=== PATIENT | male | born 1965 | race African-American/Black ===

== ENCOUNTER 2021-10-03 14:12 | Emergency (ER) | payer SELFPAY ==
[~2021-10-03] VITALS: Ht 177.8 cm; Wt 71.8 kg
--- NOTE | 2021-10-03 14:46 | PHYS DOC ---
Past Medical History Past Medical History: Alcoholism (LEXX COCHRAN STORE SALES CONSULTANT) Past Surgical History: No Surgical History (LEXX COCHRAN STORE SALES CONSULTANT) General Adult EDM: Chief Complaint: ALCOHOL INTOXICATION HPI: HPI: Patient is a 55 year old male with history of alcoholism presenting to the ED today to be evaluated after being found laying on the street intoxicated. Patient states he drank "a lot" of alcohol today. He states his birthday is coming up in a couple days and he has been drinking. (POPEYELaurentLEXX Ivy SMITH) Review of Systems: Review of Systems: Constitutional: Denies fever or chills. [] Eyes: Denies change in visual acuity. [] HENT: Denies nasal congestion or sore throat. [] Respiratory: Denies cough or shortness of breath. [] Cardiovascular: Denies chest pain or edema. [] GI: Denies abdominal pain, nausea, vomiting, bloody stools or diarrhea. [] : Denies dysuria. [] Musculoskeletal: Denies back pain or joint pain. [] Integument: Denies rash. [] Neurologic: Denies headache, focal weakness or sensory changes. [] Endocrine: Denies polyuria or polydipsia. [] Lymphatic: Denies swollen glands. [] Psychiatric: Reports alcohol intoxication (LEXX COCHRAN STORE SALES CONSULTANT) Heart Score: C/O Chest Pain: N/A Risk Factors: Risk Factors: DM, Current or recent (<one month) smoker, HTN, HLP, family history of CAD, obesity. Risk Scores: Score 0 - 3: 2.5% MACE over next 6 weeks - Discharge Home Score 4 - 6: 20.3% MACE over next 6 weeks - Admit for Clinical Observation Score 7 - 10: 72.7% MACE over next 6 weeks - Early Invasive Strategies (LEXX COCHRAN STORE SALES CONSULTANT) Current Medications: Current Medications Medications (Trade) Dose Ordered Sig/Linda Start Time Stop Time Status Last Admin Dose Admin Multivitamins 10 ml/Thiamine HCl 100 mg/Folic Acid 1 mg/Sodium Chloride 1,011.2 ml @ 1,000.088 mls/hr 1X ONCE 10/03/21 15:00 10/03/21 16:00 (LEXX COCHRAN STORE SAL[employer] CONSULTANT) Allergies: Allergies: Allergies Coded Allergies Type Severity Reaction Last Updated Verified No Known Drug Allergies 10/03/21 No (LEXX COCHRAN STORE SALES CONSULTANT) Physical Exam: PE: Constitutional: Well developed, well nourished, no acute distress, non-toxic appearance. [] HENT: Normocephalic, atraumatic, bilateral external ears normal, oropharynx moist, no oral exudates, nose normal. [] Eyes: PERRLA, EOMI, conjunctiva normal, no discharge. [] Neck: Normal range of motion, no tenderness, supple, no stridor. [] Cardiovascular:Heart rate regular rhythm, no murmur [] Lungs & Thorax: Bilateral breath sounds clear to auscultation [] Abdomen: Bowel sounds normal, soft, no tenderness, no masses, no pulsatile masses. [] Skin: Cold feeling skin, dry, no erythema, no rash. [] Back: No tenderness, no CVA tenderness. [] Extremities: No tenderness, no cyanosis, no clubbing, ROM intact, no edema. [] Neurologic: Alert and oriented X 1, normal motor function, normal sensory function, no focal deficits noted. Cranial nerves II through XII intact Psychologic: Smells of alcohol. Very pleasant, and funny (LEXX COCHRAN STORE SALES CONSULTANT) Current Patient Data: Vital Signs: Vital Signs Date Time Temp Pulse Resp B/P (MAP) Pulse Ox O2 Delivery O2 Flow Rate FiO2 10/03/21 14:12 97.4 75 20 167/107 (127) 100 Room Air 97.4 (LEXX COCHRAN [employer] SAL[employer] CONSULTANT) EKG: EKG: [] (LEXX COCHRAN APRN) Radiology/Procedures: Radiology/Procedures: [] (LEXX COCHRAN APRN) Course & Med Decision Making: Course & Med Decision Making Pertinent Labs and Imaging studies reviewed. (See chart for details) This is a 55-year-old male patient presenting to the ED today with a EMS to be evaluated for alcohol intoxication. Patient was found lying on the street drunk. He has no medical complaints. CBC with a WBC of 2.1, CMP with nothing really acute, alcohol level 550. After 3 hours in the ED patient is awake alert oriented, he is able to get up and walk and wants to go home. He is clinically sober to be discharged. He was advised to consider getting help for alcohol use which he refused. (LEXX COCHRAN ST[employer] SAL[employer] CONSULTANT) Dragon Disclaimer: Dragluciano Disclaimer: This electronic medical record was generated, in whole or in part, using a voice recognition dictation system. (LEXX COCHRAN APRN) Departure Departure Impression: Primary Impression: Alcohol intoxication Qualified Codes: F10.920 - Alcohol use, unspecified with intoxication, uncomplicated Disposition: HOME / SELF CARE / HOMELESS Condition: STABLE Patient Instructions: Alcohol Intoxication, [id number] Additional Instructions: You were evaluated in the emergency room for alcohol intoxication, please consider getting help for alcohol use. [facility] is available for [facility]. Attending Signature Attending Signature I have reviewed the PA/POULTRY OFFAL WORKER's note and plan of care. I was available for consultation as needed during the patient's visit in the emergency department. I agree with the clinical impression, plan, and disposition. (NACHO SNIDER DO) LEXX COCHRAN APRN Oct 03, 2021 14:46 NACHO SNIDER DO Oct 04, 2021 08:21
[2021-10-03] MEDS ORDERED: MULTIVIT INFUSN,ADULT 4,VIT K 10 ML, THIAMINE INJ 100 MG, FOLIC ACID INJ 1 MG in IV NOR... IV ONE ×2 (15:00→15:45)
[2021-10-03 15:36] LABS: BASO # 0.1 x10^3/uL (0.0-0.2); BASO % 3 % (0-3); CALCIUM 7.9 mg/dL (8.5-10.1); CREATININE 0.7 mg/dL (0.7-1.3); EOS % 1 % (0-3); GFR 141.2; HEMOGLOBIN 13.4 g/dL (13.0-17.5); LYMPH # 1.1 x10^3/uL (1.0-4.8); LYMPH % 55 % (24-48); MEAN CORPUSCULAR HEMOGLOBIN 32 pg (25-35); MEAN CORPUSCULAR HGB CONC 34 g/dL (31-37); MEAN CORPUSCULAR VOLUME 96 fL (79-100); MONO # 0.3 x10^3/uL (0.0-1.1); MONO % 17 % (0-9); NEUT # 0.5 x10^3/uL (1.8-7.7); NEUT % 25 % (31-73); PLATELET COUNT 190 x10^3/uL (140-400); POTASSIUM 4.6 mmol/L (3.5-5.1); RED BLOOD COUNT 4.18 x10^6/uL (4.30-5.70); RED CELL DISTRIBUTION WIDTH 15.1 % (11.5-14.5); WHITE BLOOD COUNT 2.1 x10^3/uL (4.0-11.0)
[2021-10-03 15:41] LABS: ALBUMIN 3.7 g/dL (3.4-5.0); ALBUMIN/GLOBULIN RATIO 0.9 (1.0-1.7); TOTAL BILIRUBIN 0.4 mg/dL (0.2-1.0)
[2021-10-03 15:45] LABS: SALIC 4.8 mg/dL (2.8-20.0)
[2021-10-03 15:46] LABS: ACETAMIN < 2 mcg/ml (10-30)
[2021-10-03 15:47] LABS: ETHANOL 550 mg/dL (0-10)
[2021-10-03 16:27] LABS: BILIRUBIN,URINE NEGATIVE (NEG); CLARITY,URINE CLEAR; COLOR,URINE YELLOW; NITRITE,URINE NEGATIVE (NEG); PROTEIN,URINE NEGATIVE (NEG-TRACE); UROBILINOGEN,URINE 0.2 mg/dL (0.2 mg/dL)
[2021-10-03 16:35] LABS: % BASOS 2 % (0-3); % EOS 1 % (0-5); % LYMPHS 51 % (24-48); % MONOS 12 % (0-10); % SEGS 34 % (35-66)
[2021-10-03 16:37] LABS: PLT ESTIMATE ADEQUATE (ADEQUATE)
[2021-10-03 16:38] LABS: TARGET CELLS FEW
[2021-10-03 16:44] LABS: BARBITURATES NEG (NEG); BENZODIAZEPINES NEG (NEG); CANNABINOIDS NEG (NEG); COCAINE NEG (NEG); METHADONE NEG (NEG); OPIATES NEG (NEG); PHENCYCLIDINE NEG (NEG)
[2021-10-03 16:46] LABS: AMPHETAMINE/METHAMPHETAMINE NEG (NEG); BACTERIA,URINE 0 /HPF (0-FEW); RBC,URINE RARE /HPF (0-2); WBC,URINE RARE /HPF (0-4)
[2021-10-03 18:25] VITALS: BP 153/96
== END 2021-10-03 18:25 | disposition home or self-care (01) ==
LOC: ER 14:12
DX: F10.920 Alcohol use, unspecified with intoxication, uncomplicated (principal); Y90.8 Blood alcohol level of 240 mg/100 ml or more
CPT/HCPCS: 36415; 80053; 80307; 80329; 81001; 83690; 85007; 85025; 96365; 99284; G0480; J3411; J3490; J7030